=== PATIENT | female | born 1990 | race Caucasian/White ===

== ENCOUNTER 2020-03-01 11:39 | Emergency (ER) | payer OTHER ==
[~2020-03-01] VITALS: Ht 162.6 cm; Wt 108.9 kg
[2020-03-01] MEDS ORDERED: LEXAPRO 10 MG T10 M1 PO (11:55)
[2020-03-01] MEDS ORDERED: NORCO 10-325 T1 EACH PO (11:56)
[2020-03-01] MEDS ORDERED: HYDROXYZINE HCL50 MG PO (11:56)
[2020-03-01 12:03] LABS: URINE BILIRUBIN NEGATIVE (Negative); URINE BLOOD NEGATIVE (Negative); URINE CLARITY CLEAR; URINE COLOR YELLOW; URINE GLUCOSE-RANDOM NEGATIVE (Negative); URINE KETONES TRACE (Negative); URINE LEUKOCYTES-REFLEX NEGATIVE (Negative); URINE NITRITE-REFLEX NEGATIVE (Negative); URINE PROTEIN NEGATIVE (Negative); URINE SPECIFIC GRAVITY 1.015 (1.005-1.030); URINE UROBILINOGEN 0.2 E.U./dl (0.2-1.0)
[2020-03-01 12:10] LABS: ABSOLUTE BASOPHILS 0.1 thou/uL (0.0-0.2); ABSOLUTE EOSINOPHILS 0.1 thou/uL (0.0-0.7); ABSOLUTE LYMPHOCYTES 3.5 thou/uL (0.8-5.3); ABSOLUTE MONOCYTES 0.7 thou/uL (0.0-1.2); ABSOLUTE NEUTROPHILS 8.8 thou/uL (1.6-8.1); BASOPHILS 0.8 %; HEMATOCRIT 38.1 % (37.0-47.0); HEMOGLOBIN 12.3 gm/dL (12.0-15.0); LYMPHOCYTES 26.3 %; MCH 26.2 pg (26.0-34.0); MCHC 32.3 g/dL (28.0-37.0); MCV 81.3 fL (80.0-100.0); MONOCYTES 5.3 %; NUCLEATED RBCS 0 /100WBC; PLATELET COUNT* 481 thou/uL (150-400); POLYS 66.6 %; RBC 4.68 mil/uL (4.20-5.00); RDW-CV 16.1 % (10.5-14.5); WBC 13.2 thou/uL (4.0-11.0)
[2020-03-01 12:19] LABS: CALCIUM 8.1 mg/dL (8.5-10.1); POTASSIUM 3.6 mmol/L (3.5-5.1)
[2020-03-01 12:24] LABS: ALBUMIN 3.9 g/dL (3.4-5.0); TOTAL BILIRUBIN 0.3 mg/dL (<0.1-1.0)
[2020-03-01] MEDS ORDERED: ONDANSETRON HCL4 M2 PO (12:43)
[2020-03-01 12:50] VITALS: BP 149/79
--- NOTE | 2020-03-01 14:59 | EKG ---
[place] [address] ELECTROCARDIOGRAM REPORT Name: KANNANJERROD SAMM Room: [facility]#: [id number] Admission: 03/01/20 Attend Phys: Discharge: 03/01/20 Date of : 89 Date of Service: 03/01/20 1207 Report #: [id number] THIS REPORT FOR: //name// [facility] ED Test Date: 2020-03-01 Test Time: 12:07:18 Pat Name: JERROD BRUNNER Department: Room: Gender: Ward Attendant: [facility] : 1990 Requested By: Donna Conroy Order Number: [id number] MD: Bert Mackey Measurements Intervals [place] Rate: 94 P: 26 TN: 116 QRS: 30 QRSD: 83 T: 20 QT: 346 QTc: 433 Interpretive Statements Sinus rhythm Borderline short TN interval Low voltage, precordial leads Baseline wander in lead(s) I,aVR,aVL No previous ECG available for comparison Electronically Signed On 03-01-2020 14:59:05 TROUBLE TRACER by Bert Mackey [email or web address] <ELECTRONICALLY SIGNED> By: Bert Mackey MD, FACC 03/01/20 1459 1207 1207 Bert Mackey MD, FAC /EPI
== END 2020-03-01 12:51 | disposition home or self-care (01) ==
LOC: M.ERS 11:39
PROVIDERS: Nurse Practitioner Family
DX: R11.2 Nausea with vomiting, unspecified (principal); Z79.899 Other long term (current) drug therapy

== ENCOUNTER 2020-04-27 13:38 | Emergency (ER) | payer OTHER ==
[~2020-04-27] VITALS: Ht 160 cm; Wt 108.9 kg
[~2020-04-27 13:38] MED LIST: HYDROXYZINE HCL50 MG PO; LEXAPRO 10 MG T10 M1 PO; NORCO 10-325 T1 EACH PO; ONDANSETRON HCL4 M2 PO
[2020-04-27 14:16] LABS: ABSOLUTE BASOPHILS 0.1 thou/uL (0.0-0.2); ABSOLUTE EOSINOPHILS 0.2 thou/uL (0.0-0.7); ABSOLUTE LYMPHOCYTES 3.4 thou/uL (0.8-5.3); ABSOLUTE MONOCYTES 0.7 thou/uL (0.0-1.2); BASOPHILS 0.9 %; EOSINOPHILS 1.5 %; HEMATOCRIT 37.5 % (37.0-47.0); HEMOGLOBIN 12.2 gm/dL (12.0-15.0); LYMPHOCYTES 25.5 %; MCH 26.1 pg (26.0-34.0); MCHC 32.6 g/dL (28.0-37.0); MCV 80.1 fL (80.0-100.0); MONOCYTES 5.3 %; MPV 7.6 fl. (7.2-11.1); NUCLEATED RBCS 0 /100WBC; PLATELET COUNT* 475 thou/uL (150-400); POLYS 66.8 %; RBC 4.69 mil/uL (4.20-5.00); RDW-CV 16.1 % (10.5-14.5); WBC 13.4 thou/uL (4.0-11.0)
[2020-04-27 14:24] LABS: CALCIUM 8.6 mg/dL (8.5-10.1); CREATININE 0.8 mg/dL (0.6-1.3); POTASSIUM 3.9 mmol/L (3.5-5.1)
[2020-04-27 14:29] LABS: TOTAL BILIRUBIN 0.3 mg/dL (<0.1-1.0); TOTAL PROTEIN 7.8 g/dL (6.4-8.2)
[2020-04-27 14:48] LABS: ACETAMINOPHEN < 2 ug/mL (10-30); ALCOHOL < 10 mg/dL (<10)
[2020-04-27 14:58] LABS: URINE BILIRUBIN NEGATIVE (Negative); URINE BLOOD NEGATIVE (Negative); URINE CLARITY CLEAR; URINE COLOR YELLOW; URINE GLUCOSE-RANDOM NEGATIVE (Negative); URINE KETONES NEGATIVE (Negative); URINE LEUKOCYTES-REFLEX NEGATIVE (Negative); URINE NITRITE-REFLEX NEGATIVE (Negative); URINE PROTEIN TRACE (Negative); URINE SPECIFIC GRAVITY 1.025 (1.005-1.030); URINE UROBILINOGEN 0.2 E.U./dl (0.2-1.0)
[2020-04-27 15:07] LABS: AMP/METHAMP Negative (Negative); BARBITURATES Negative (Negative); BENZODIAZEPINES Negative (Negative); COCAINE Negative (Negative); METHADONE Negative (Negative); OPIATES Negative (Negative); PCP Negative (Negative); THC POSITIVE (Negative)
[2020-04-27 15:18] LABS: SALICYLATE < 2.8 mg/dL (2.8-20.0)
[2020-04-27 18:44] VITALS: BP 124/72
== END 2020-04-27 18:45 | disposition home or self-care (01) ==
LOC: M.ERS 13:38
PROVIDERS: Emergency Medicine Emergency Medical Services
DX: R45.851 Suicidal ideations (principal); F32.9 Major depressive disorder, single episode, unspecified; F41.9 Anxiety disorder, unspecified